=== PATIENT | male | born 1955 | race Caucasian/White ===

== ENCOUNTER 2023-01-29 11:59 | Outpatient (CLI) | payer OTHER, MEDICAID | END 2023-01-29 12:00 | disposition home or self-care (01) | LOC: ULT 11:59 | DX: I42.0 Dilated cardiomyopathy (principal); G47.33 Obstructive sleep apnea (adult) (pediatric); I10 Essential (primary) hypertension; I08.1 Rheumatic disorders of both mitral and tricuspid valves | CPT/HCPCS: 93306 ==